=== PATIENT | male | born 1945 | race Caucasian/White ===

== ENCOUNTER 2019-06-06 06:00 | Outpatient (RCR) | payer MEDICARE, OTHER, SELFPAY | END 2019-07-01 23:59 | disposition home or self-care (01) | LOC: SPT 06:00 | PROVIDERS: Family Provider Family Medicine; PCP Family Medicine; Referring Provider Family Medicine; Visit Provider Family Medicine | DX: M54.12 Radiculopathy, cervical region (principal) | CPT/HCPCS: 97110; 97140; 97161; G0283 ==

== ENCOUNTER → 2019-06-29 08:25 | Outpatient (BNVA) | payer MEDICARE, OTHER, SELFPAY | PROVIDERS: Family Provider Family Medicine; PCP Family Medicine; Visit Provider Internal Medicine Cardiovascular Disease | DX: I48.91 Unspecified atrial fibrillation (principal) | CPT/HCPCS: 85610 ==

== ENCOUNTER 2019-07-02 06:00 | Outpatient (RCR) | payer MEDICARE, OTHER, SELFPAY | END 2019-07-30 23:59 | disposition home or self-care (01) | LOC: SPT 06:00 | PROVIDERS: Family Provider Family Medicine; PCP Family Medicine; Referring Provider Family Medicine; Visit Provider Family Medicine | DX: M54.12 Radiculopathy, cervical region (principal) | CPT/HCPCS: 97110; 97140 ==

== ENCOUNTER 2019-07-31 06:00 | Outpatient (RCR) | payer MEDICARE, OTHER, SELFPAY | END 2019-08-05 23:00 | disposition home or self-care (01) | LOC: SPT 06:00 | PROVIDERS: Family Provider Family Medicine; PCP Family Medicine; Referring Provider Family Medicine; Visit Provider Family Medicine | DX: M54.12 Radiculopathy, cervical region (principal) | CPT/HCPCS: 97110; 97140 ==

== ENCOUNTER → 2019-08-03 08:06 | Outpatient (BNVA) | payer MEDICARE, OTHER, SELFPAY | PROVIDERS: Family Provider Family Medicine; PCP Family Medicine; Visit Provider Internal Medicine Cardiovascular Disease | DX: I48.91 Unspecified atrial fibrillation (principal) | CPT/HCPCS: 85610 ==

== ENCOUNTER → 2019-08-16 14:19 | Outpatient (BNVA) | payer MEDICARE, OTHER, SELFPAY | PROVIDERS: Family Provider Family Medicine; PCP Family Medicine; Visit Provider Urology | DX: N40.1 Benign prostatic hyperplasia with lower urinary tract symptoms (principal); C67.9 Malignant neoplasm of bladder, unspecified; R97.20 Elevated prostate specific antigen [PSA] | CPT/HCPCS: 81001 ==

== ENCOUNTER → 2019-09-22 12:00 | Outpatient (BNVA) | payer MEDICARE, OTHER, SELFPAY | PROVIDERS: Family Provider Family Medicine; PCP Family Medicine; Visit Provider Internal Medicine Cardiovascular Disease | DX: I48.91 Unspecified atrial fibrillation (principal) | CPT/HCPCS: 85610 ==

== ENCOUNTER → 2019-10-03 08:30 | Outpatient (BNVA) | payer MEDICARE, OTHER, SELFPAY | PROVIDERS: Family Provider Family Medicine; PCP Family Medicine; Visit Provider Internal Medicine Cardiovascular Disease | DX: I48.91 Unspecified atrial fibrillation (principal) | CPT/HCPCS: 85610 ==

== ENCOUNTER → 2019-10-31 09:09 | Outpatient (BNVA) | payer MEDICARE, OTHER, SELFPAY | PROVIDERS: Family Provider Family Medicine; PCP Family Medicine; Visit Provider Internal Medicine Cardiovascular Disease | DX: I48.91 Unspecified atrial fibrillation (principal) | CPT/HCPCS: 85610 ==

== ENCOUNTER → 2019-12-29 08:43 | Outpatient (BNVA) | payer MEDICARE, OTHER, SELFPAY | PROVIDERS: Family Provider Family Medicine; PCP Family Medicine; Visit Provider Internal Medicine Cardiovascular Disease | DX: I48.91 Unspecified atrial fibrillation (principal) | CPT/HCPCS: 85610 ==

== ENCOUNTER → 2020-01-18 08:47 | Outpatient (BNVA) | payer MEDICARE, OTHER, SELFPAY | PROVIDERS: Family Provider Family Medicine; PCP Family Medicine; Referring Provider Dermatology; Visit Provider Dermatology | DX: L57.0 Actinic keratosis (principal); I87.8 Other specified disorders of veins; L81.7 Pigmented purpuric dermatosis; L82.1 Other seborrheic keratosis; D23.9 Other benign neoplasm of skin, unspecified | CPT/HCPCS: 17000; 17003; 99203 ==

== ENCOUNTER 2020-01-30 14:23 | Outpatient (CLI) | payer MEDICARE, OTHER, SELFPAY ==
--- NOTE | 2020-01-30 14:34 | MR_ITS ---
WS: [id number] MRI RIGHT KNEE NONCONTRAST TECHNIQUE: Axial PD, coronal PD fat sat, coronal PD, sagittal PD, and sagittal PD fat-sat images obta ined. CLINICAL INFORMATION: POSITIVE JUSTINA TEST RIGHT COMPARISON: Radiograph January 16, 2020 FINDINGS: Normal anterior cruciate ligament. Normal posterior cruciate ligament. Distal quadriceps and patella tendons are intact. Hypertrophic patella. Faint intrasubstance signal abnormality medial meniscus pos terior horn suspicious for a tiny meniscal tear. Lateral meniscus is normal. TIny amount of edema inv olving the medial tibial plateau. Femoral condyles are normal. Mild chondromalacia involving the medi al and lateral joint compartments. Diffuse edema involving the superficial and deep aspect of the medial collateral ligament consistent with ligamentous injury. MCL is grossly intact. Lateral collateral ligament is normal. Moderate chondromalacia patella. No subchondral edema. Tiny likely popliteal cyst MR/MR knee RT wo con* [id number] IMPRESSION: 1. Normal anterior and posterior cruciate ligaments. 2. Faint signal abnormality involving the medial meniscus suspicious for tiny horizontal meniscal tear. 3. Diffuse edema along the medial collateral ligament involving the superficia l and deep fibers consistent with ligamentous injury. MCL appears grossly intac t. 4. Moderate chondromalacia patella. No subchondral edema. 5. Small lobulated popliteal cyst measuring 12 x 6 mm. 6. Small amount of degenerative edema in the medial tibial plateau.
== END 2020-01-30 14:24 | disposition home or self-care (01) ==
LOC: RADWPI 14:29
PROVIDERS: Family Provider Family Medicine; PCP Family Medicine; Visit Provider Family Medicine
DX: R29.898 Other symptoms and signs involving the musculoskeletal system (principal); M22.41 Chondromalacia patellae, right knee; R60.0 Localized edema; M71.21 Synovial cyst of popliteal space [Baker], right knee; I48.91 Unspecified atrial fibrillation
CPT/HCPCS: 73721; 85610

== ENCOUNTER → 2020-02-27 09:02 | Outpatient (BNVA) | payer MEDICARE, OTHER, SELFPAY | PROVIDERS: Family Provider Family Medicine; PCP Family Medicine; Visit Provider Internal Medicine Cardiovascular Disease | DX: I48.91 Unspecified atrial fibrillation (principal) | CPT/HCPCS: 85610 ==

== ENCOUNTER 2020-02-28 06:00 | Outpatient (RCR) | payer MEDICARE, OTHER, SELFPAY | END 2020-02-29 23:59 | disposition home or self-care (01) | LOC: SPT 06:00 | PROVIDERS: PCP Family Medicine; Referring Provider Orthopaedic Surgery; Visit Provider Orthopaedic Surgery | DX: M22.2X1 Patellofemoral disorders, right knee (principal) | CPT/HCPCS: 97110; 97162 ==

== ENCOUNTER 2020-03-01 06:00 | Outpatient (RCR) | payer MEDICARE, OTHER, SELFPAY | END 2020-03-16 23:00 | disposition home or self-care (01) | LOC: SPT 06:00 | PROVIDERS: PCP Family Medicine; Referring Provider Orthopaedic Surgery; Visit Provider Orthopaedic Surgery | DX: M22.2X1 Patellofemoral disorders, right knee (principal); M25.561 Pain in right knee | CPT/HCPCS: 97110 ==

== ENCOUNTER → 2020-03-27 10:02 | Outpatient (BNVA) | payer MEDICARE, OTHER, SELFPAY | PROVIDERS: PCP Family Medicine; Visit Provider Internal Medicine Cardiovascular Disease | DX: I48.91 Unspecified atrial fibrillation (principal) | CPT/HCPCS: 85610 ==

== ENCOUNTER 2020-04-18 06:00 | Outpatient (RCR) | payer MEDICARE, OTHER, SELFPAY | END 2020-04-30 23:59 | disposition home or self-care (01) | LOC: SPT 06:00 | PROVIDERS: PCP Family Medicine; Referring Provider Orthopaedic Surgery; Visit Provider Orthopaedic Surgery | DX: M47.816 Spondylosis without myelopathy or radiculopathy, lumbar region (principal); M54.5 Low back pain | CPT/HCPCS: 97161 ==

== ENCOUNTER → 2020-04-24 09:01 | Outpatient (BNVA) | payer MEDICARE, OTHER, SELFPAY | PROVIDERS: PCP Family Medicine; Visit Provider Internal Medicine Cardiovascular Disease | DX: I48.91 Unspecified atrial fibrillation (principal) | CPT/HCPCS: 85610 ==

== ENCOUNTER 2020-05-01 06:00 | Outpatient (RCR) | payer MEDICARE, OTHER, SELFPAY | END 2020-05-31 23:59 | disposition home or self-care (01) | LOC: SPT 06:00 | PROVIDERS: PCP Family Medicine; Referring Provider Orthopaedic Surgery; Visit Provider Orthopaedic Surgery | DX: M47.816 Spondylosis without myelopathy or radiculopathy, lumbar region (principal); M54.5 Low back pain | CPT/HCPCS: 97110 ==

== ENCOUNTER → 2020-05-22 08:48 | Outpatient (BNVA) | payer MEDICARE, OTHER, SELFPAY | PROVIDERS: PCP Family Medicine; Visit Provider Internal Medicine Cardiovascular Disease | DX: I48.91 Unspecified atrial fibrillation (principal) | CPT/HCPCS: 85610 ==

== ENCOUNTER → 2020-06-21 09:57 | Outpatient (BNVA) | payer MEDICARE, OTHER, SELFPAY | PROVIDERS: PCP Family Medicine; Visit Provider Internal Medicine Cardiovascular Disease | DX: I48.91 Unspecified atrial fibrillation (principal) | CPT/HCPCS: 85610 ==

== ENCOUNTER → 2020-07-02 09:31 | Outpatient (BNVA) | payer MEDICARE, OTHER, SELFPAY | PROVIDERS: PCP Family Medicine; Visit Provider Urology | DX: C67.9 Malignant neoplasm of bladder, unspecified (principal); R97.20 Elevated prostate specific antigen [PSA]; N40.1 Benign prostatic hyperplasia with lower urinary tract symptoms | CPT/HCPCS: 81003; 84153 ==

== ENCOUNTER → 2020-07-26 10:14 | Outpatient (BNVA) | payer MEDICARE, OTHER, SELFPAY | PROVIDERS: PCP Family Medicine; Visit Provider Internal Medicine Cardiovascular Disease | DX: I48.91 Unspecified atrial fibrillation (principal) | CPT/HCPCS: 85610 ==

== ENCOUNTER → 2020-08-23 10:50 | Outpatient (BNVA) | payer MEDICARE, OTHER, SELFPAY | PROVIDERS: PCP Family Medicine; Visit Provider Internal Medicine Cardiovascular Disease | DX: I48.91 Unspecified atrial fibrillation (principal) | CPT/HCPCS: 85610 ==

== ENCOUNTER → 2020-09-20 08:50 | Outpatient (BNVA) | payer MEDICARE, OTHER, SELFPAY | PROVIDERS: PCP Family Medicine; Visit Provider Internal Medicine Cardiovascular Disease | DX: I48.91 Unspecified atrial fibrillation (principal) | CPT/HCPCS: 85610 ==

== ENCOUNTER → 2020-10-18 08:45 | Outpatient (BNVA) | payer MEDICARE, OTHER, SELFPAY | PROVIDERS: PCP Family Medicine; Visit Provider Internal Medicine Cardiovascular Disease | DX: I48.91 Unspecified atrial fibrillation (principal) | CPT/HCPCS: 85610 ==

== ENCOUNTER → 2020-11-01 09:00 | Outpatient (BNVA) | payer MEDICARE, OTHER, SELFPAY | PROVIDERS: PCP Family Medicine; Visit Provider Internal Medicine Cardiovascular Disease | DX: I48.91 Unspecified atrial fibrillation (principal) | CPT/HCPCS: 85610 ==

== ENCOUNTER → 2020-11-15 08:56 | Outpatient (BNVA) | payer MEDICARE, OTHER, SELFPAY | PROVIDERS: PCP Family Medicine | DX: I48.91 Unspecified atrial fibrillation (principal); Z79.01 Long term (current) use of anticoagulants | CPT/HCPCS: 85610 ==

== ENCOUNTER → 2020-12-13 09:02 | Outpatient (BNVA) | payer MEDICARE, OTHER, SELFPAY | PROVIDERS: PCP Family Medicine; Visit Provider Internal Medicine Cardiovascular Disease | DX: I48.91 Unspecified atrial fibrillation (principal); Z79.01 Long term (current) use of anticoagulants | CPT/HCPCS: 85610 ==

== ENCOUNTER → 2021-01-10 09:33 | Outpatient (BNVA) | payer MEDICARE, OTHER, SELFPAY | PROVIDERS: PCP Family Medicine; Visit Provider Internal Medicine Cardiovascular Disease | DX: I48.91 Unspecified atrial fibrillation (principal); Z79.01 Long term (current) use of anticoagulants | CPT/HCPCS: 85610 ==

== ENCOUNTER → 2021-02-07 09:04 | Outpatient (BNVA) | payer MEDICARE, OTHER, SELFPAY | PROVIDERS: PCP Family Medicine; Visit Provider Internal Medicine Cardiovascular Disease | DX: I48.91 Unspecified atrial fibrillation (principal); Z79.01 Long term (current) use of anticoagulants | CPT/HCPCS: 85610 ==

== ENCOUNTER → 2021-02-21 08:48 | Outpatient (BNVA) | payer MEDICARE, OTHER, SELFPAY | PROVIDERS: PCP Family Medicine; Visit Provider Internal Medicine Cardiovascular Disease | DX: I48.91 Unspecified atrial fibrillation (principal); Z79.01 Long term (current) use of anticoagulants | CPT/HCPCS: 85610 ==

== ENCOUNTER → 2021-03-21 09:08 | Outpatient (BNVA) | payer MEDICARE, OTHER, SELFPAY | PROVIDERS: PCP Family Medicine; Visit Provider Internal Medicine Cardiovascular Disease | DX: I48.91 Unspecified atrial fibrillation (principal); Z79.01 Long term (current) use of anticoagulants | CPT/HCPCS: 85610 ==

== ENCOUNTER → 2021-04-18 09:21 | Outpatient (BNVA) | payer MEDICARE, OTHER, SELFPAY | PROVIDERS: PCP Family Medicine; Visit Provider Internal Medicine Cardiovascular Disease | DX: I48.91 Unspecified atrial fibrillation (principal); Z79.01 Long term (current) use of anticoagulants | CPT/HCPCS: 85610 ==

== ENCOUNTER → 2021-05-16 09:28 | Outpatient (BNVA) | payer MEDICARE, OTHER, SELFPAY | PROVIDERS: PCP Family Medicine; Visit Provider Internal Medicine Cardiovascular Disease | DX: I48.91 Unspecified atrial fibrillation (principal); Z79.01 Long term (current) use of anticoagulants | CPT/HCPCS: 85610 ==

== ENCOUNTER → 2021-05-22 09:02 | Outpatient (BNVA) | payer MEDICARE, OTHER, SELFPAY | PROVIDERS: PCP Family Medicine; Visit Provider Internal Medicine Cardiovascular Disease | DX: I48.91 Unspecified atrial fibrillation (principal); Z79.01 Long term (current) use of anticoagulants | CPT/HCPCS: 85610 ==

== ENCOUNTER → 2021-05-29 09:00 | Outpatient (BNVA) | payer MEDICARE, OTHER, SELFPAY | PROVIDERS: PCP Family Medicine; Visit Provider Internal Medicine Cardiovascular Disease | DX: I48.91 Unspecified atrial fibrillation (principal) | CPT/HCPCS: 85610 ==

== ENCOUNTER 2021-06-11 06:54 | Outpatient (CLI) | payer MEDICARE, OTHER, SELFPAY ==
[2021-06-11 07:01] VITALS: BMI 27.3
--- NOTE | 2021-06-11 07:39 | ECG_ITS ---
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 Interpretive Statements NAME OF STUDY: TREADMILL STRESS TEST INDICATION: Angina Baseline blood pressure of 147/103 mm Hg, heart rate of 94 beats per minute and oxygen saturation 100%. EKG showed atrial fibrillation, normal axis with nonspecific ST depression and T wave changes. The patient exercised for 6 minutes 27 seconds on a standard Edinson protocol. Patient attained a maximum heart rate of 182 beats per minute(127% of the maximum predicted heart rate) with a blood pressure at the peak exercise of 160/96 mm Hg and oxygen saturation 93%. The EKG at the peak exercise revealed atrial fibrillation with rapid ventricle response with nonspecific ST depression in lateral leads. Patient did not have any chest pain or any significant arrhythmis with the exercise. Patient developed intraprocedural shortness of breath that resolved by discharge. The study was terminated due to protocol completion. During the recovery phase, there were no new changes. Blood pressure at the end of the recovery phase was 132/98 mm Hg with a heart rate of 105 beats per minute and oxygen saturation 98%. CONCLUSION: 1. Normal EKG response to treadmill exercise. This is of limited sensitivity given baseline ST-T wave changes. 2. No exercise-induced chest pain or cardiac arrhythmia. Patient remained in atrial fibrillation throughout the study. 3. Excellent exercise tolerance, attained a maximum of 10.2 METs. Maximum VO2 of 35.7 mL/kg/min. 4. Baseline hypertension with normal response to exercise. RESULTS TO PARVEZ FAUSTIN Electronically Signed On 06-18-2021 12:12:48 MANAGER URGENT CARE by Natalia Thomas M.D. [email or web address]
--- NOTE | 2021-06-11 08:25 | SUR.PREOP ---
Stress test orders Patient arrived today for scheduled nuclear stress test. No order noted in the sytem. Reached out to Walker Kessler for the order. Recieved after an hour wait. The test is scheduled incorrectly for what the order states. I called Walker Kessler back. The test per Betina, which is Dr Rich nurse is supposed to be a plain treadmill stress. The order matches this request, but is scheduled as a nuclear stress. I notified our scheduling department to clarify whether or not the test needs a pre authorization since it was scheduled incorrectly or not and had to leave a message. I am currently waiting on a reply. I updated the patient on this and he is agreeable at this point to wait for the reply.
--- NOTE | 2021-06-11 08:34 | SUR.PREOP ---
Erica Tinsley Received a phone call from [facility] nurse Betina and she states that [place] [facility] [place] is for a plain treadmill stress test and not a Mibi. The exams were just Scheduled incorrectly, but from an insurance perspective we are cleared to to a Plain Treadmill study. Patient updated. Proceeding and non nuclear study.
[2021-06-11 09:37] VITALS: BP 164/99; PULSE 105
== END 2021-06-11 06:55 | disposition home or self-care (01) ==
LOC: CDL 06:57
PROVIDERS: PCP Family Medicine; Visit Provider Family Medicine
DX: R68.89 Other general symptoms and signs (principal); R07.9 Chest pain, unspecified
CPT/HCPCS: 93017

== ENCOUNTER → 2021-06-26 09:07 | Outpatient (BNVA) | payer MEDICARE, OTHER, SELFPAY | PROVIDERS: PCP Family Medicine; Visit Provider Internal Medicine Cardiovascular Disease | DX: I48.91 Unspecified atrial fibrillation (principal); Z79.01 Long term (current) use of anticoagulants | CPT/HCPCS: 85610 ==

== ENCOUNTER → 2021-07-03 09:04 | Outpatient (BNVA) | payer MEDICARE, OTHER, SELFPAY | PROVIDERS: PCP Family Medicine; Visit Provider Internal Medicine Cardiovascular Disease | DX: I48.91 Unspecified atrial fibrillation (principal) | CPT/HCPCS: 85610 ==

== ENCOUNTER → 2021-07-31 09:00 | Outpatient (BNVA) | payer MEDICARE, OTHER, SELFPAY | PROVIDERS: PCP Family Medicine; Visit Provider Internal Medicine Cardiovascular Disease | DX: I48.91 Unspecified atrial fibrillation (principal); Z79.01 Long term (current) use of anticoagulants | CPT/HCPCS: 85610 ==

== ENCOUNTER 2021-08-26 12:32 | Outpatient (CLI) | payer MEDICARE, OTHER, SELFPAY ==
[2021-08-26 13:32] LABS: Prostate Specific Antigen 0.941 ng/mL (0-4)
== END 2021-08-26 12:33 | disposition home or self-care (01) ==
LOC: LAB 12:36
PROVIDERS: PCP Family Medicine; Visit Provider Urology
DX: R97.20 Elevated prostate specific antigen [PSA] (principal)
CPT/HCPCS: 81003; 84153

== ENCOUNTER → 2021-09-04 08:56 | Outpatient (BNVA) | payer MEDICARE, OTHER, SELFPAY | PROVIDERS: PCP Family Medicine; Visit Provider Internal Medicine Cardiovascular Disease | DX: I48.91 Unspecified atrial fibrillation (principal); Z79.01 Long term (current) use of anticoagulants | CPT/HCPCS: 85610 ==

== ENCOUNTER → 2021-09-10 14:43 | Outpatient (BNVA) | payer MEDICARE, OTHER, SELFPAY | PROVIDERS: PCP Family Medicine; Visit Provider Internal Medicine Cardiovascular Disease | DX: I48.20 Chronic atrial fibrillation, unspecified (principal); I10 Essential (primary) hypertension; I83.811 Varicose veins of right lower extremity with pain; R53.83 Other fatigue; Z86.73 Personal history of transient ischemic attack (TIA), and cerebral infarction without residual deficits; Z79.01 Long term (current) use of anticoagulants | CPT/HCPCS: 99213; 99214 ==

== ENCOUNTER → 2021-10-02 08:53 | Outpatient (BNVA) | payer MEDICARE, OTHER, SELFPAY | PROVIDERS: PCP Family Medicine; Visit Provider Internal Medicine Cardiovascular Disease | DX: Z79.01 Long term (current) use of anticoagulants (principal) | CPT/HCPCS: 85610 ==

== ENCOUNTER → 2021-10-31 08:52 | Outpatient (BNVA) | payer MEDICARE, OTHER, SELFPAY | PROVIDERS: PCP Family Medicine; Visit Provider Internal Medicine Cardiovascular Disease | DX: Z79.01 Long term (current) use of anticoagulants (principal) | CPT/HCPCS: 85610 ==

== ENCOUNTER → 2021-11-07 08:54 | Outpatient (BNVA) | payer MEDICARE, OTHER, SELFPAY | PROVIDERS: PCP Family Medicine; Visit Provider Internal Medicine Cardiovascular Disease | DX: Z79.01 Long term (current) use of anticoagulants (principal) | CPT/HCPCS: 85610 ==

== ENCOUNTER 2021-11-08 06:00 | Outpatient (RCR) | payer MEDICARE, OTHER, SELFPAY | END 2021-11-27 12:47 | disposition home or self-care (01) | LOC: SPT 06:00 | PROVIDERS: PCP Family Medicine; Referring Provider Family Medicine; Visit Provider Family Medicine | DX: M54.50 Low back pain, unspecified (principal); M25.512 Pain in left shoulder | CPT/HCPCS: 97110; 97140; 97161; G0283 ==

== ENCOUNTER → 2021-12-05 08:53 | Outpatient (BNVA) | payer MEDICARE, OTHER, SELFPAY | PROVIDERS: PCP Family Medicine; Visit Provider Internal Medicine Cardiovascular Disease | DX: Z79.01 Long term (current) use of anticoagulants (principal) | CPT/HCPCS: 85610 ==

== ENCOUNTER → 2022-01-02 09:50 | Outpatient (BNVA) | payer MEDICARE, OTHER, SELFPAY | PROVIDERS: PCP Family Medicine; Visit Provider Internal Medicine Cardiovascular Disease | DX: I48.91 Unspecified atrial fibrillation (principal); Z51.81 Encounter for therapeutic drug level monitoring; Z79.01 Long term (current) use of anticoagulants | CPT/HCPCS: 85610 ==

== ENCOUNTER → 2022-01-30 10:03 | Outpatient (BNVA) | payer MEDICARE, OTHER, SELFPAY | PROVIDERS: PCP Family Medicine; Visit Provider Internal Medicine Cardiovascular Disease | DX: I48.91 Unspecified atrial fibrillation (principal) | CPT/HCPCS: 85610 ==

== ENCOUNTER → 2022-02-27 15:16 | Outpatient (BNVA) | payer MEDICARE, OTHER, SELFPAY | PROVIDERS: PCP Family Medicine; Visit Provider Internal Medicine Cardiovascular Disease | DX: I48.91 Unspecified atrial fibrillation (principal) | CPT/HCPCS: 85610 ==

== ENCOUNTER → 2022-03-06 13:37 | Outpatient (BNVA) | payer MEDICARE, OTHER, SELFPAY | PROVIDERS: PCP Family Medicine; Visit Provider Internal Medicine Cardiovascular Disease | DX: I48.20 Chronic atrial fibrillation, unspecified (principal); Z79.01 Long term (current) use of anticoagulants; I10 Essential (primary) hypertension; R00.1 Bradycardia, unspecified; Z86.73 Personal history of transient ischemic attack (TIA), and cerebral infarction without residual deficits; Z87.891 Personal history of nicotine dependence | CPT/HCPCS: 99214 ==

== ENCOUNTER → 2022-03-27 09:18 | Outpatient (BNVA) | payer MEDICARE, OTHER, SELFPAY | PROVIDERS: PCP Family Medicine; Visit Provider Internal Medicine Cardiovascular Disease | DX: I48.91 Unspecified atrial fibrillation (principal) | CPT/HCPCS: 85610 ==

== ENCOUNTER → 2022-04-07 13:33 | Outpatient (BNVA) | payer MEDICARE, OTHER, SELFPAY | PROVIDERS: PCP Family Medicine; Visit Provider Internal Medicine Cardiovascular Disease | DX: I48.91 Unspecified atrial fibrillation (principal); Z79.01 Long term (current) use of anticoagulants | CPT/HCPCS: 85610 ==

== ENCOUNTER → 2022-05-05 13:27 | Outpatient (BNVA) | payer MEDICARE, OTHER, SELFPAY | PROVIDERS: PCP Family Medicine; Visit Provider Internal Medicine Cardiovascular Disease | DX: I48.91 Unspecified atrial fibrillation (principal); Z79.01 Long term (current) use of anticoagulants | CPT/HCPCS: 85610 ==

== ENCOUNTER → 2022-06-09 15:12 | Outpatient (BNVA) | payer MEDICARE, OTHER, SELFPAY | PROVIDERS: PCP Family Medicine; Visit Provider Internal Medicine Cardiovascular Disease | DX: I48.91 Unspecified atrial fibrillation (principal) | CPT/HCPCS: 85610 ==

== ENCOUNTER → 2022-07-07 13:13 | Outpatient (BNVA) | payer OTHER, MEDICARE, SELFPAY | PROVIDERS: PCP Family Medicine; Visit Provider Internal Medicine Cardiovascular Disease | DX: I48.91 Unspecified atrial fibrillation (principal) | CPT/HCPCS: 85610 ==

== ENCOUNTER → 2022-08-04 13:00 | Outpatient (BNVA) | payer MEDICARE, SELFPAY | PROVIDERS: PCP Family Medicine; Visit Provider Internal Medicine Cardiovascular Disease | DX: I48.91 Unspecified atrial fibrillation (principal) | CPT/HCPCS: 85610 ==

== ENCOUNTER 2022-08-07 13:13 | Outpatient (CLI) | payer MEDICARE, SELFPAY ==
--- NOTE | 2022-08-07 13:31 | US_ITS ---
WS: [id number] Complete ABDOMINAL ULTRASOUND HISTORY: ABNORMAL LIVER FUNCTION COMPARISON: None available. Liver: 14.3 cm in length. Liver is normal size and echogenicity with no mass or intrahepatic dilatati on. Portal Vein: Normal hepatopetal flow with monophasic waveform. Gallbladder: Normally distended with no gallstones, wall thickening or pericholecystic fluid. Pancreas: Poorly visualized. The body is normal. Head and tail are poorly visualized. CBD: 0.3 cm. Right kidney: 11.0 cm x 4.7 cm x 5.2 cm. No mass, cortical thickening or hydronephrosis. Left kidney: 11.1 cm x 6.2 cm x 6.0 cm. No mass, cortical thickening or hydronephrosis. Spleen: Normal size and echogenicity. Abdominal aorta and IVC are within normal limits. No ascites. US/US abdomen complete* [id number] IMPRESSION: 1. Normal gallbladder. 2. No bile duct dilatation. 3. Limited visualization of the pancreas.
--- NOTE | 2022-08-07 13:31 | US_ITS ---
WS: [id number] URINARY BLADDER ULTRASOUND HISTORY: URINARY OUTFLOW OBSTRUCTION COMPARISON: None available. Urinary bladder is well distended. No intraluminal filling defect. No free fluid adjacent to the urin alin bladder. Bladder Wall Thickness: 0.2 cm. Prevoid volume: 82 cc. Postvoid volume: 7.5 cc. Minimal residual. Prostate gland is enlarged. US/US bladder [id number] IMPRESSION: 1. Minimal post void urinary bladder residual. 2. Prostate enlargement.
== END 2022-08-07 13:14 | disposition home or self-care (01) ==
PROVIDERS: PCP Family Medicine; Visit Provider Family Medicine
DX: R94.5 Abnormal results of liver function studies (principal); N13.9 Obstructive and reflux uropathy, unspecified; N40.0 Benign prostatic hyperplasia without lower urinary tract symptoms
CPT/HCPCS: 76700; 76857

== ENCOUNTER → 2022-09-01 13:54 | Outpatient (BNVA) | payer MEDICARE, SELFPAY | PROVIDERS: PCP Family Medicine; Visit Provider Internal Medicine Cardiovascular Disease | DX: I48.91 Unspecified atrial fibrillation (principal) | CPT/HCPCS: 85610 ==

== ENCOUNTER → 2022-09-04 14:58 | Outpatient (BNVA) | payer MEDICARE, SELFPAY | PROVIDERS: PCP Family Medicine; Visit Provider Urology | DX: C67.9 Malignant neoplasm of bladder, unspecified (principal); N13.8 Other obstructive and reflux uropathy; N40.1 Benign prostatic hyperplasia with lower urinary tract symptoms | CPT/HCPCS: 51741; 51798; 81003; 99213 ==

== ENCOUNTER 2022-09-11 14:36 | Emergency (ER) | payer MEDICARE, SELFPAY ==
[2022-09-11 14:43] VITALS: BP 134/78; PULSE 74; RESP 16; TEMP 36.4; O2SAT 96
--- NOTE | 2022-09-11 14:47 | ECG_ITS ---
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 Measurements Intervals [place] Rate: 65 P: 0 WA: 0 QRS: -18 QRSD: 104 T: -8 QT: 407 QTc: 426 Interpretive Statements ATRIAL FIBRILLATION MODERATE VOLTAGE CRITERIA FOR LVH, CONSIDER NORMAL VARIANT [MEETS CRITERIA IN ONE OF: R(aVL), S(V1), R(V5), R(V5/V6)+S(V1)] PROBABLE LATERAL MYOCARDIAL INFARCTION , PROBABLY OLD [35 ms Q WAVE IN I/aVL/V5/V6] Compared to ECG 04/04/2018 14:03:59 Myocardial infarct finding now present Electronically Signed On 09-11-2022 21:08:36 CDT by Yvon Haider M.D. [id number]
--- NOTE | 2022-09-11 14:58 | PC.NURSE ---
Pt triaged, states he does not want to stay to be evaluated, states he is feeling better now. Talked with pt about risks of not being evaluated, pt verbalized understanding and states he will come back if symptoms return. Pt got up and left triage room ambulatory, walked out of hospital.
== END 2022-09-11 15:01 | disposition left against medical advice (07) ==
LOC: ER 14:37
PROVIDERS: Emergency Provider Family Medicine; PCP Family Medicine
DX: R07.9 Chest pain, unspecified (principal); F44.89 Other dissociative and conversion disorders; I48.20 Chronic atrial fibrillation, unspecified; Z86.73 Personal history of transient ischemic attack (TIA), and cerebral infarction without residual deficits; I10 Essential (primary) hypertension; Z87.891 Personal history of nicotine dependence
CPT/HCPCS: 93005; 99214

== ENCOUNTER → 2022-09-29 12:56 | Outpatient (BNVA) | payer MEDICARE, SELFPAY | PROVIDERS: PCP Family Medicine; Visit Provider Internal Medicine Cardiovascular Disease | DX: I48.91 Unspecified atrial fibrillation (principal) | CPT/HCPCS: 85610 ==

== ENCOUNTER → 2022-10-28 13:43 | Outpatient (BNVA) | payer MEDICARE, SELFPAY | PROVIDERS: PCP Family Medicine; Visit Provider Internal Medicine Cardiovascular Disease | DX: I48.91 Unspecified atrial fibrillation (principal) | CPT/HCPCS: 85610 ==

== ENCOUNTER → 2022-11-03 13:04 | Outpatient (BNVA) | payer MEDICARE, SELFPAY | PROVIDERS: PCP Family Medicine; Visit Provider Internal Medicine Cardiovascular Disease | DX: I48.91 Unspecified atrial fibrillation (principal) | CPT/HCPCS: 85610 ==

== ENCOUNTER → 2022-11-17 13:09 | Outpatient (BNVA) | payer MEDICARE, SELFPAY | PROVIDERS: PCP Family Medicine; Visit Provider Internal Medicine Cardiovascular Disease | DX: I48.91 Unspecified atrial fibrillation (principal) | CPT/HCPCS: 85610 ==

== ENCOUNTER → 2022-12-08 13:13 | Outpatient (BNVA) | payer MEDICARE, SELFPAY | PROVIDERS: PCP Family Medicine; Visit Provider Internal Medicine Cardiovascular Disease | DX: I48.91 Unspecified atrial fibrillation (principal) | CPT/HCPCS: 85610 ==

== ENCOUNTER → 2023-01-05 14:33 | Outpatient (BNVA) | payer MEDICARE, SELFPAY | PROVIDERS: PCP Family Medicine; Visit Provider Internal Medicine Cardiovascular Disease | DX: I48.91 Unspecified atrial fibrillation (principal) | CPT/HCPCS: 85610 ==

== ENCOUNTER → 2023-02-09 13:12 | Outpatient (BNVA) | payer MEDICARE, SELFPAY | PROVIDERS: PCP Family Medicine; Visit Provider Internal Medicine Cardiovascular Disease | DX: I48.91 Unspecified atrial fibrillation (principal) | CPT/HCPCS: 85610 ==

== ENCOUNTER → 2023-02-16 14:05 | Outpatient (BNVA) | payer MEDICARE, SELFPAY | PROVIDERS: PCP Family Medicine; Visit Provider Internal Medicine Cardiovascular Disease | DX: I48.91 Unspecified atrial fibrillation (principal) | CPT/HCPCS: 85610 ==

== ENCOUNTER → 2023-03-16 13:28 | Outpatient (BNVA) | payer MEDICARE, SELFPAY | PROVIDERS: PCP Family Medicine; Visit Provider Internal Medicine Cardiovascular Disease | DX: I48.91 Unspecified atrial fibrillation (principal) | CPT/HCPCS: 85610 ==

== ENCOUNTER → 2023-03-23 14:34 | Outpatient (BNVA) | payer MEDICARE, SELFPAY | PROVIDERS: PCP Family Medicine; Visit Provider Internal Medicine Cardiovascular Disease | DX: I48.91 Unspecified atrial fibrillation (principal) | CPT/HCPCS: 85610 ==

== ENCOUNTER → 2023-03-30 13:21 | Outpatient (BNVA) | payer MEDICARE, SELFPAY | PROVIDERS: PCP Family Medicine; Visit Provider Internal Medicine Cardiovascular Disease | DX: I48.91 Unspecified atrial fibrillation (principal) | CPT/HCPCS: 85610 ==

== ENCOUNTER → 2023-03-31 14:53 | Outpatient (BNVA) | payer MEDICARE, SELFPAY | PROVIDERS: PCP Family Medicine; Visit Provider Nurse Practitioner Family | DX: S00.80XA Unspecified superficial injury of other part of head, initial encounter (principal); X58.XXXA Exposure to other specified factors, initial encounter; L57.0 Actinic keratosis; D18.01 Hemangioma of skin and subcutaneous tissue; L73.8 Other specified follicular disorders | CPT/HCPCS: 17000; 99213 ==

== ENCOUNTER → 2023-04-09 13:38 | Outpatient (BNVA) | payer MEDICARE, SELFPAY | PROVIDERS: PCP Family Medicine; Visit Provider Internal Medicine Cardiovascular Disease | DX: I48.91 Unspecified atrial fibrillation (principal) | CPT/HCPCS: 85610 ==

== ENCOUNTER → 2023-06-02 10:01 | Outpatient (BNVA) | payer MEDICARE, SELFPAY | PROVIDERS: PCP Family Medicine; Visit Provider Internal Medicine Cardiovascular Disease | DX: I48.91 Unspecified atrial fibrillation (principal) | CPT/HCPCS: 85610 ==

== ENCOUNTER → 2023-06-30 09:10 | Outpatient (BNVA) | payer MEDICARE, SELFPAY | PROVIDERS: PCP Family Medicine; Visit Provider Internal Medicine Cardiovascular Disease | DX: I48.91 Unspecified atrial fibrillation (principal) | CPT/HCPCS: 85610 ==

== ENCOUNTER → 2023-08-31 16:04 | Outpatient (BNVA) | payer MEDICARE, SELFPAY | PROVIDERS: PCP Family Medicine; Visit Provider Internal Medicine Cardiovascular Disease | DX: I48.91 Unspecified atrial fibrillation (principal) | CPT/HCPCS: 85610 ==

== ENCOUNTER → 2023-09-08 14:16 | Outpatient (BNVA) | payer MEDICARE, SELFPAY | PROVIDERS: PCP Family Medicine; Visit Provider Internal Medicine Cardiovascular Disease | DX: I48.91 Unspecified atrial fibrillation (principal) | CPT/HCPCS: 85610 ==

== ENCOUNTER → 2023-10-05 16:49 | Outpatient (BNVA) | payer MEDICARE, SELFPAY | PROVIDERS: PCP Family Medicine; Visit Provider Internal Medicine Cardiovascular Disease | DX: I48.91 Unspecified atrial fibrillation (principal) | CPT/HCPCS: 85610 ==

== ENCOUNTER → 2023-10-29 14:58 | Outpatient (BNVA) | payer MEDICARE, SELFPAY | PROVIDERS: PCP Family Medicine; Visit Provider Internal Medicine Cardiovascular Disease | DX: I48.91 Unspecified atrial fibrillation (principal) | CPT/HCPCS: 85610 ==

== ENCOUNTER → 2023-11-11 14:39 | Outpatient (BNVA) | payer MEDICARE, SELFPAY | PROVIDERS: PCP Family Medicine; Visit Provider Internal Medicine Cardiovascular Disease | DX: I48.91 Unspecified atrial fibrillation (principal) | CPT/HCPCS: 85610 ==

== ENCOUNTER → 2023-11-17 14:02 | Outpatient (BNVA) | payer MEDICARE, SELFPAY | PROVIDERS: PCP Family Medicine; Visit Provider Internal Medicine Cardiovascular Disease | DX: I10 Essential (primary) hypertension (principal); I48.20 Chronic atrial fibrillation, unspecified; R00.1 Bradycardia, unspecified; I83.811 Varicose veins of right lower extremity with pain; Z87.891 Personal history of nicotine dependence; Z79.01 Long term (current) use of anticoagulants | CPT/HCPCS: 99214 ==

== ENCOUNTER → 2023-11-18 14:14 | Outpatient (BNVA) | payer MEDICARE, SELFPAY | PROVIDERS: PCP Family Medicine; Visit Provider Internal Medicine Cardiovascular Disease | DX: I48.91 Unspecified atrial fibrillation (principal) | CPT/HCPCS: 85610 ==

== ENCOUNTER → 2023-12-16 14:00 | Outpatient (BNVA) | payer MEDICARE, SELFPAY | PROVIDERS: PCP Family Medicine; Visit Provider Internal Medicine Cardiovascular Disease | DX: I48.91 Unspecified atrial fibrillation (principal) | CPT/HCPCS: 85610 ==

== ENCOUNTER → 2024-01-13 14:08 | Outpatient (BNVA) | payer MEDICARE, SELFPAY | PROVIDERS: PCP Family Medicine; Visit Provider Internal Medicine Cardiovascular Disease | DX: I48.91 Unspecified atrial fibrillation (principal) | CPT/HCPCS: 85610 ==

== ENCOUNTER → 2024-01-20 14:14 | Outpatient (BNVA) | payer MEDICARE, SELFPAY | PROVIDERS: PCP Family Medicine; Visit Provider Internal Medicine Cardiovascular Disease | DX: I48.91 Unspecified atrial fibrillation (principal) | CPT/HCPCS: 85610 ==

== ENCOUNTER → 2024-04-05 11:07 | Outpatient (BNVA) | payer MEDICARE, SELFPAY | PROVIDERS: PCP Family Medicine; Visit Provider Nurse Practitioner Family | DX: D48.5 Neoplasm of uncertain behavior of skin (principal); L57.0 Actinic keratosis; B02.29 Other postherpetic nervous system involvement; D22.39 Melanocytic nevi of other parts of face | CPT/HCPCS: 17280; 99214 ==

== ENCOUNTER → 2024-04-07 12:55 | Outpatient (BNVA) | payer MEDICARE, SELFPAY | PROVIDERS: PCP Family Medicine; Visit Provider Internal Medicine Cardiovascular Disease | DX: I48.91 Unspecified atrial fibrillation (principal) | CPT/HCPCS: 85610 ==

== ENCOUNTER → 2024-04-14 13:11 | Outpatient (BNVA) | payer MEDICARE, SELFPAY | PROVIDERS: PCP Family Medicine; Visit Provider Internal Medicine Cardiovascular Disease | DX: I48.91 Unspecified atrial fibrillation (principal) | CPT/HCPCS: 85610 ==

== ENCOUNTER → 2024-06-07 13:54 | Outpatient (BNVA) | payer MEDICARE, SELFPAY | PROVIDERS: PCP Family Medicine; Visit Provider Internal Medicine Cardiovascular Disease | DX: I48.20 Chronic atrial fibrillation, unspecified (principal); I10 Essential (primary) hypertension; R00.1 Bradycardia, unspecified; I83.811 Varicose veins of right lower extremity with pain; Z87.891 Personal history of nicotine dependence; Z79.01 Long term (current) use of anticoagulants | CPT/HCPCS: 99214 ==

== ENCOUNTER → 2024-07-04 14:04 | Outpatient (BNVA) | payer MEDICARE, SELFPAY | PROVIDERS: PCP Family Medicine; Visit Provider Internal Medicine Cardiovascular Disease | DX: I48.91 Unspecified atrial fibrillation (principal) | CPT/HCPCS: 85610 ==

== ENCOUNTER → 2024-08-04 10:36 | Outpatient (BNVA) | payer MEDICARE, SELFPAY | PROVIDERS: PCP Family Medicine; Visit Provider Internal Medicine Cardiovascular Disease | DX: I48.91 Unspecified atrial fibrillation (principal) | CPT/HCPCS: 85610 ==

== ENCOUNTER → 2024-09-29 11:47 | Outpatient (BNVA) | payer MEDICARE, SELFPAY | PROVIDERS: PCP Family Medicine | DX: I48.91 Unspecified atrial fibrillation (principal) | CPT/HCPCS: 85610 ==

== ENCOUNTER → 2024-11-08 11:11 | Outpatient (BNVA) | payer MEDICARE, SELFPAY | PROVIDERS: PCP Family Medicine; Visit Provider Internal Medicine Cardiovascular Disease | DX: I48.91 Unspecified atrial fibrillation (principal) | CPT/HCPCS: 85610 ==

== ENCOUNTER → 2025-01-17 10:16 | Outpatient (BNVA) | payer MEDICARE, SELFPAY | PROVIDERS: PCP Family Medicine; Visit Provider Internal Medicine Cardiovascular Disease | DX: I48.91 Unspecified atrial fibrillation (principal) | CPT/HCPCS: 85610 ==

== ENCOUNTER → 2025-02-16 10:58 | Outpatient (BNVA) | payer MEDICARE, SELFPAY | PROVIDERS: PCP Family Medicine; Visit Provider Internal Medicine Cardiovascular Disease | DX: I48.91 Unspecified atrial fibrillation (principal) | CPT/HCPCS: 85610 ==

== ENCOUNTER 2025-02-22 06:46 | Emergency (ER) | payer MEDICARE, SELFPAY ==
--- OUTSIDE RECORDS SUMMARY | 2025-02-22 06:57 | XMS_ITS | Encounter Summary ---
Author Organization [facility] Address [address] [place] [address] Care Team Providers Care Checkerer Hand Name Role Phone Unavailable Primary Care Provider Unavailabl e Encounter Details Date Type Department Care Team (Latest Contact Info) Description 01/22/2004 Outpatient Historical [facility] Cardiac Office Coordinator Receptionist [address] [place] [phone] Hosea Flores MD NO ADDRESS ON FILE CORON ATHEROSCL [place] CORON VESSEL (Primary Dx) Social History Tobacco Use Types Packs/Day Years Used Date Smoking Tobacco: Never Assessed Sex and Gender Information Value Date Recorded Sex Assigned at Not on file 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
--- OUTSIDE RECORDS SUMMARY | 2025-02-22 06:57 | XMS_ITS | Encounter Summary ---
Author Organization [facility] Address 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
--- OUTSIDE RECORDS SUMMARY | 2025-02-22 06:57 | XMS_ITS | Clinical Summary ---
Author Organization [facility] Address [address] [place]hn: [place] [address] Care Team Providers Care Shot Core Drill Operator Helper Name Role Phone Unavailable Primary Care Provider Unavailabl e Allergies No known active allergies Medications tamsulosin (FLOMAX) 0.4 mg capsule Take 0.4 mg by mouth daily. 04/04/2018 Active finasteride (PROSCAR) 5 mg tablet Take 5 mg by mouth daily. 04/04/2018 Active metoprolol tartrate (LOPRESSOR) 25 mg tablet Take 25 mg by mouth 2 times daily. 04/04/2018 Active aspirin (ADELFO CHEWABLE) 81 mg Tablet, Chewable Take 81 mg by mouth daily. 04/04/2018 Active warfarin (COUMADIN) 2 mg tablet Take 2 mg by mouth daily. 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 Benign hypertension 04/04/2018 Encounters Date Type Department Care Team Description 02/14/2025 External Device Data [facility] ABSTRACTION Provider, Abstract 01/24/2025 External Device Data [facility] ABSTRACTION Provider, Abstract 01/16/2025 Telephone [facility] Urology [address] [place] [phone] Provider, Abstract urology referral appointment 01/12/2025 Abstract [facility] Urolog[address] [place] [address] Provider, Abstract from Last 3 Months Family History Medical History Relation Name Comments Heart Disease Father Hypertension Father Heart Disease Mother Hypertension Mother Relation Name Status Comments Father Mother Social History Tobacco Use Types Packs/Day Years Used Date Smoking Tobacco: Never Smokeless Tobacco: Never Alcohol Use Standard Drinks/Week Comments No 0 (1 standard drink = 0.6 oz pur e alcohol) Sex and Gender Information Value Date Recorded Sex Assigned at Not on file 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 Sex Male 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 Gender Identity Not on file Sexual Orientation Not on file Last Filed Vital Signs Vital Sign Reading Time Taken Comments Blood Pressure 134/62 04/08/2018 3:45 PM HARBOR TUG CAPTAIN Pulse 84 04/08/2018 3:45 PM HARBOR TUG CAPTAIN Temperature 36.3 C (97.3 F) 04/08/2018 3:45 PM HARBOR TUG CAPTAIN Respiratory Rate 20 04/08/2018 3:45 PM HARBOR TUG CAPTAIN Oxygen Saturation - - Inhaled Oxygen Concentration - - Weight 90.7 kg (200 lb) 04/04/2018 9:30 PM HARBOR TUG CAPTAIN Height 175.3 cm (5' 9 ) 04/08/2018 3:20 AM HARBOR TUG CAPTAIN Body Mass Index 29.53 04/04/2018 9:30 PM HARBOR TUG CAPTAIN Plan of Treatment Upcoming Encounters Date Type Department Care Team (Late st Contact Info) Description 03/22/2025 10:45 AM CDT Office Visit [facility] Urology [address] [place] [phone] Darrel Mendoza MD [address] [place] [phone] Health Maintenance Due Date Last Done Comments DTAP/TDAP/TD VACCINES (1 - Tdap) 1962 ZOSTER VACCINE (1 of 2) 1993 PNEUMOCOCCAL VACCINE 50+ YEA RS (2 of 2 - PCV) 06/01/2003 06/01/2002 RSV VACCINE (60+ or ) (1 - 1-dose 75+ series) 2018 INFLUENZA VACCINE (#1) 2024 3, 04/09/2022, 11/02/2015, Additional history exists COVID-19 Vaccine (2024-2 6 season) 2025 04/09/2022, 04/12/2021, 03/01/2021, Additional history exists Insurance [facility]
--- OUTSIDE RECORDS SUMMARY | 2025-02-22 06:57 | XMS_ITS | Clinical Summary ---
Author Organization [facility] Address [address] [place] [address] Phone Care Team Providers Care Senior Sas Developer Name Role Phone Unavailable Primary Care Provider Unavailabl e Allergies No known active allergies Medications aspirin (ADELFO CHEWABLE) 81 mg Tablet, Chewable Take 81 mg by mouth daily. Active finasteride (PROSCAR) 5 mg tablet Take 5 mg by mouth daily. Active tamsulosin (FLOMAX) 0.4 mg capsule Take 0.4 mg by mouth daily. Active metoprolol tartrate (LOPRESSOR) 25 mg tablet Take 25 mg by mouth 2 times daily. Active warfarin (COUMADIN) 2 mg tablet Take 2 mg by mouth daily. 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 file Not on file Not on file Last Filed Vital Signs Vital Sign Reading Time Taken Comments Blood Pressure 134/62 04/08/2018 3:45 PM JIG AND FIXTURE REPAIRER Pulse 84 04/08/2018 3:45 PM JIG AND FIXTURE REPAIRER Temperature 36.3 C (97.3 F) 04/08/2018 3:45 PM JIG AND FIXTURE REPAIRER Respiratory Rate 20 04/08/2018 3:45 PM JIG AND FIXTURE REPAIRER Oxygen Saturation 94% 04/08/2018 3:45 PM JIG AND FIXTURE REPAIRER Inhaled Oxygen Concentration - - Weight 90.7 kg (200 lb) 04/04/2018 9:30 PM JIG AND FIXTURE REPAIRER Height 175.3 cm (5' 9 ) 04/08/2018 3:20 AM JIG AND FIXTURE REPAIRER Body Mass Index 29.53 04/04/2018 9:30 PM JIG AND FIXTURE REPAIRER Plan of Treatment Health Maintenance Due Date Last Done Comments DTAP/TDAP/TD VACCINES (1 - Tdap) 1962 PNEUMOCOCCAL VACCINE 50+ YEARS (1 of 2 - PCV) 07/28/18 63 ZOSTER VACCINE (1 of 2) 1993 RSV VACCINE (60+ or ) (1 - 1-dose 75+ series) 2018 INFLUENZA VACCINE (#1) 2024 Insurance MEDICARE PART A AND B [employer] [place] [place] [id number] [place] [place] [place] [id number] Advance Directives For more information, please contact: [phone] * Full Code (Latest Code Status on File) Date Activated Date Inactivated Comments 04/04/2018 10:19 PM 04/08/2018 8:18 PM
--- OUTSIDE RECORDS SUMMARY | 2025-02-22 06:57 | XMS_ITS | Encounter Summary ---
Author Organization [employer] [facility] Address [address] [place] [address] Care Team Providers Care Director Of Tax Services Name Role Phone Unavailable Primary Care Provider Unavailabl e Encounter Details Date Type Department Care Team (Latest Contact Info) Description 01/06/2003 Outpatient Historical [facility] [address] [place] [phone] Jayden Liu MD NO ADDRESS ON FILE MALIG SUNI BLADDER NOS (CMS/HCC) (Primary Dx) Social History Tobacco Use Types Packs/Day Years Used Date Smoking Tobacco: Never Assessed Sex and Gender Information Value Date Recorded Sex Assigned at Not on file 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
--- OUTSIDE RECORDS SUMMARY | 2025-02-22 06:57 | XMS_ITS | Patient Health Record ---
Author Organization [facility] [facility] Address [address] [place] [address] Care Team Providers Care Yarn Handler Name Role Phone Hilario SHETTY, Parvez Primary Care Provider Donita DENNYER MENDY [facility] [phone] Allergies Allergen (clinical drug ingredient) Drug/Non Drug Allergy documented on EMR Reaction Allergy Type Onset Date Status Penicillin allergy Drug Allergy Active Results Component Value Reference Range Notes Urinalysis, Routine Reviewed date:04/18/2024 03:42:40 PM Interpretation: Performing Lab: Notes/Report: Urine-Color yellow Appearance clear Glucose - Bilirubin - Ketones - Specific [place] 1.015 Occult Blood 2+ pH 6.0 Urine Protein - Urobilinogen,Semi-Qn - Nitrite, Urine - WBC Esterase - Urinalysis Gross Exam - Reason For Referral No Information Medications Medication SIG (Take, Route, Frequency, Duration) Notes Start Date End Date Status Ibuprofen 200 MG 2 tablets with food or milk as needed Orally as needed 06/03/2023 Active Warfarin Sodium 2 MG 1 tablet Orally Once a day Active Metoprolol Tartrate 25 MG 1 tablet with food Orally daily 06/03/2023 Active Finasteride 5 MG 1 tablet Orally Once a day 2023 Active amLODIPine Besylate 5 MG 1 tablet Orally Once a day 06/03/2023 Active Tamsulosin HCl 0.4 MG 1 capsule Orally O nce a day 06/03/2023 Active Vitamin C Active Social History Tobacco Use: Social History Observation Description Date Details (start date - stop date) Former Smoker NA - NA Tobacco Use/Smoking Question Answer Notes Tobacco use: former smoker Tobacco Control (Standard) Question Answer Notes Tobacco use: Former smoker Problems Problem Type SNOMED Code ICD Code Onset Dates Problem Status W/U Status Risk Notes Problem Benign prostatic hyperplasia (801362294) BPH (benign prostatic hyperplasia) (N40.0) Active confirmed Problem History of hematuria (143098534) History of hematuria (Z87.448) Active confirmed Problem Personal history of primary malignant neoplasm of urinary bladder (337621562) History of bladder cancer (Z85.51) Active confirmed Problem Malignant tumor of urinary bladder (850746772) Malignant neoplasm of urinary bladder, unspecified site (C67.9) Active confirmed Vital Signs Heart Rate 82 /min 04/18/2024 Temperature 97.9 degrees Fahrenheit 04/18/2024 Blood pressure diastolic 77 mm Hg 04/18/2024 Height-cm 175.26 cm 04/18/2024 Weight-kg 92.99 kg 04/18/2024 Height 69 in 04/18/2024 Blood pressure systolic 134 mm Hg 04/18/2024 Weight 205 lbs 04/18/2024 BMI 30.27 kg/m2 04/18/2024 Encounters Encounter Location Date Provider Diagnosis [employer] [facility] [address] [place] [address] 04/18/2024 [facility] BPH (benign prostatic hyperplasia) N40.0 ; History of bladder cancer Z85.51 and History of hematuria Z87.448 [employer] [facility] [address] [place] [address] 04/06/2024 MENDY CHEN [employer] [facility] [employer] [facility] [address] [place] [address] 04/19/2024 [facility] [employer] [facility] [employer] [facility] [address] [place] [address] 11/21/2024 [facility] Assessments Encounter Date Diagnosis (ICD Code) Assessment Notes Treatment Notes Treatment Clinical Notes Section Notes 04/18/2024 BPH (benign prostatic hyperplasia) (ICD-10 - N40.0) 78 yo male with hematuria, BPH and history of bladder cancer. Cysto negative today. Plan: cysto in 1 year Accupath cytology and Uro17 today all questions answered 04/18/2024 History of bladder cancer (ICD-10 - Z85.51) 78 yo male with hematuria, BPH and history of bladder cancer. Cysto negative today. Plan: cysto in 1 year Accupath cytology and Uro17 today all questions answered 04/18/2024 History of hematuria (ICD-10 - Z87.448) 78 yo male with hematuria, BPH and history of bladder cancer. Cysto negative today. Plan: cysto in 1 year Accupath cytology and Uro17 today all questions answered Plan Of Treatment Pending Test Test Name Order Date Bladder Scan 06/03/2023 Next Appt Details Provider Name:MENDY Mei, 04/20/2025 01:10:00 PM, [address] [place], [address], Insurance Providers Payer Name Payer Address Payer Phone Subscriber Number Group Number Insured Name Patient Relationship to Insured Coverage Start Date Coverage End Date [employer] Medicare Replacemen t [address] [place], [place] [id number] Zion Toribio Self - patient is the insured Medical (General) History Medical History History ICD Code BPH with LUTS bladder cancer urolithiasis gross hematuria a fib hypertension cervical and lumbar disc disorder CVA elevated PSA kidney stones aortic and mitral insufficiency Surgical History Surgery Date(Month/Year) prostate bx Hospitalization History Reason Date(Month/Year) heart issues
[2025-02-22 07:01] VITALS: BP 164/100; PULSE 80; RESP 18; TEMP 36.7; O2SAT 97; BMI 31.0
[2025-02-22 07:27] LABS: Add Urine Microscopic? YES; UA Manual Slide Review YES
[2025-02-22 07:33] VITALS: BP 142/92
[2025-02-22 07:34] LABS: Hematocrit 45.5 % (37-53); Hemoglobin 15.30 g/dL (11.27-16.99); Mean Corpuscular HGB Conc 33.6 g/dL (30-55); Mean Corpuscular Hemoglobin 29.1 pg (27-33); Mean Corpuscular Volume 86.5 fl (82-101); Nucleated Red Blood Cells % 0 %; Platelet Count 178 10^3/cmm (157-399); Red Blood Count 5.26 10^6/uL (3.85-5.65); White Blood Count 7.33 10^3/uL (3.29-11.43)
--- NOTE | 2025-02-22 07:40 | ED_ITS ---
HPI - Male Genitourinary 2 General: Chief complaint: Urogenital-Male Stated complaint: trouble urinating, blood in urine Time Seen by Provider: 02/22/25 06:54 History of Present Illness: 79-year-old male presents emergency room complaining of hematuria and difficulty urinating. Patient is on Coumadin for atrial fibrillation. He has a history of BPH is also tells me he has a history of bladder cancer his last bladder scope was with Dr. Vilchis in [place] approximately 6 months ago. Last few years he been seeing Dr. Vilchis prior to that he is seeing Dr. Newman. He is able to void a little after arrival here but still unable to completely empty his bladder. He denies any fever sweats chills no flank pain. Associated symptoms: Reports hematuria; Deny dysuria Related Data Home Medications ?Medication ?Instructions ?Recorded ?Confirmed tamsulosin 0.4 mg capsule 0.4 mg PO DAILY 06/03/1911/21 warfarin 1 mg tablet 1 mg PO DIRECTED 07/04/19 02/16/25 ascorbate calcium (vitamin C) 500 500 mg PO DAILY 06/2109/04/22 mg tablet Previous Rx's ?Medication ?Instructions ?Recorded amlodipine 5 mg tablet See Rx Instructions .Route 0 12/17/21 .COMPLEX #90 tabs finasteride 5 mg tablet See Rx Instructions .Route 0 01/10/22 .COMPLEX #90 tabs warfarin 2 mg tablet See Rx Instructions .Route 0 01/17/25 .COMPLEX #90 tabs metoprolol tartrate 25 mg tablet See Rx Instructions . Route 01/24/25 .COMPLEX #180 tabs Allergies Allergy/AdvReac Type Severity Reaction Status Date / Time penicillin G Allergy felt like Verified 06/07/24 14:08 was going to Review of Systems 2 Const: Denies: fever(s) or chills Card: Denies: chest pain Resp: Denies: dyspnea GI: Denies: abdominal pain : Reports: difficulty urinating, urinary dribbling, difficulty starting urination and hematuria; Denies: flank pain, dysuria, urinary frequency or urinary urgency Musc: Denies: neck pain or back pain Skin/Breast: Denies: rash PFSH ED 2 PFSH: Medical History H/O carcinoma of bladder Varicose vein of leg Bladder cancer History of kidney stones BPH loc w urin obs/LUTS Gross hematuria Near syncope Old cerebrovascular accident (CVA) without late effect Bradycardia by electrocardiogram Benign essential HTN Chronic episodic atrial fibrillation Actinic keratosis Sacroiliac pain Cervicalgia Lumbar disc disorder with myelopathy Benign prostatic hyperplasia with urinary obstruction Malignant neoplasm of bladder neck Low back pain radiating to left leg Paresthesia of left arm and leg Elevated PSA Cervical disc disorder with myelopathy Hypertension Bradycardia Intermittent palpitations Moderate aortic insufficiency Hypotension Moderate mitral insufficiency Easy bruising Asymptomatic superficial varicosities of both lower extremities CVA (cerebral vascular accident) Atypical chest pain Acute cystitis with hematuria Fractured nose Atrial fibrillation Surgical History H/O prostate biopsy Family History Mother , AT AGE 87 No problems noted. Father , AT AGE 87 No problems noted. Family/Other Chronic kidney disease (CKD) Other Diabetes Denies family history of CAD (coronary artery disease) Clotting disorder Dementia Suicide Anesthesia complication Bleeding disorder Lung disease Cancer Stroke Social History Smoking and tobacco/nicotine status: former use of tobacco/nicotine Alcohol intake: never Substance/Drug Use: unknown Adopted: No Caregiver/support person: No Lives independently: No Household members: spouse Marital status: Current occupational status: retired Physical Exam 2 Const: GENERAL APPEARANCE: cooperative ORIENTATION/CONSCIOUSNESS: Yes awake, Yes oriented to person, Yes oriented to place and Yes oriented to time HENMT: COMMON NORMALS: normocephalic, atraumatic and hearing grossly normal bilaterally HEAD & SCALP: normocephalic and atraumatic Resp: COMMON NORMALS: normal respiratory effort, No retractions, No use of accessory muscles and clear to auscultation bilaterally AUSCULTATION: clear to auscultation bilaterally Cardio: COMMON NORMALS: regular rate, regular rhythm and No murmurs present (Cardio) RATE: regular rate RHYTHM: regular rhythm GI: COMMON NORMALS: Soft to palpation and No hepatosplenomegaly present A USCULTATION: Yes normoactive bowel sounds PALPATION: Yes Soft to palpation, No Tenderness to palpation present (GI), No Guarding due to palpation present (GI) and Yes No hepatosplenomegaly present Extremity: COMMON NORMALS: normal to inspection, capillary refill normal, no clubbing, cyanosis or edema, no calf tenderness and no pedal edema Neuro: SENSORIUM/ORIENTATION: Yes oriented to person, Yes oriented to place and Yes oriented to time Skin: COMMON NORMALS: no rashes or lesions noted GENERAL SKIN EXAM: no rashes or lesions noted Course 2 Vital Signs: Vital signs: Vital Signs Temperature 98.1 F 02/22/25 07:01 Pulse Rate 70 02/22/25 09:17 Respiratory Rate 18 02/22/25 07:01 Blood Pressure 158/92 02/22/25 09:17 Pulse Oximetry 97 02/22/25 09:17 Oxygen Delivery Me thod Room Air 02/22/25 07:01 MDM - Male Medical Decision Making Initial postvoid residual of 350 mL. Urine is frankly bloody. Catheter placed irrigated and he is completely clear urine now. He is not significantly over anticoagulated his INR is 2. Long discussion with the patient. He has a history of BPH he had a history of bladder cancer its been nearly 6 months since his last cystoscopy. He has had a couple episodes of intermittent hematuria since that last cystoscopy. He will obviously need another 1. Expressed to him my concern he could start bleeding again in which case could become obstructed and require the Fritz. We have the option of leaving it in in the event it does recur or we can remove it and if it recurs he would have to return. He would prefer to go home without it he understands the risks and is willing to take that chance and return if he has recurrence of symptoms. Encouraged him to void frequently and follow-up with his urologist as soon as he is able return if he has any difficulty emptying his bladder or difficulty starting or urine stream. Medical Records I reviewed the patient's medical records. Lab Data I reviewed the patient's lab results. 02/22/25 07:25 02/22/25 07:25 Laboratory Results WBC 7.33 10^3/uL (3.29-11.43) 02/22/25 07:25 RBC 5.26 10^6/uL (3.85-5.65) 02/22/25 07:25 Hgb 15.30 g/dL (11.27-16.99) 09/24/25 07:25 Hct 45.5 % (37-53) 02/22/25 07:25 MCV 86.5 fl (82-101) 02/22/25 07:25 MCH 29.1 pg (27-33) 02/22/25 07: MCHC 33.6 g/dL (30-55) 02/22/25 07:25 RDW 13.5 % (12.1-15.1) 02/22/25 07:25 Plt Count 178 10^3/cmm (157-399) 02/22/25 07:25 MPV 9.5 fL (7.4-10.4) 02/22/25 07:25 Neut % (Auto) 55.0 % 02/22/25 07: Lymph % (Auto) 30.2 % 02/22/25 07:25 Mcclain % (Auto) 12.1 % 02/22/25 07:25 Eos % (Auto) 1.9 % 02/22/25 07:25 Baso % (Auto) 0.5 % 02/22/25 07: Neut # (Auto) 4.03 10^3/uL (1.8-7.7) 02/22/25 07:25 Lymph # (Auto) 2.2 10^3/uL (0.8-4.8) 02/22/25 07:25 Mcclain # (Auto) 0.9 10^3/uL (0.2-0.9) 02/22/25 07:25 Eos # (Auto) 0.1 10^3/uL (0.0-0.8) 02/22/25 07:25 Baso # (Auto) 0.0 10^3/uL (0.0-0.1) 02/22/25 07: Nucleated RBC % (auto) 0 % 02/22/25 07: Nucleated RBCs # 0.0 /100WBC 02/22/25 07:25 PT 24.00 SECONDS (12.1-14.9) H 02/22/25 07:25 INR 2.01 (0.8-1.2) H 02/22/25 07:25 Sodium 138 mmol/L (136-145) 02/22/25 07:25 Potassium 4.1 mmol/L (3.5-5.1) 02/22/25 07:25 Chloride 101 mmol/L (98-107) 02/22/25 07:25 Carbon Dioxide 25 mmol/L (22-29) 02/22/25 07:25 Anion Gap 16.1 (5-19) 02/22/25 07:25 BUN 22 mg/dL (8-23) 02/22/25 07:25 Creatinine 1.0 mg/dL (0.7-1.2) 02/22/25 07:25 GFR Calculation Not Reportable 02/22/25 07:25 Glucose 115 mg/dL (65-115) 02/22/25 07:25 Calculated Osmolality 290 mOsm/kg (285-295) 02/22/25 07:25 Calcium 8.9 mg/dL (8.5-10.5) 02/22/25 07:25 Urine Color Red (Yellow) A 02/22/25 06:50 Urine Appearance Turbid (CLEAR) A 02/22/25 06:50 Urine pH Not Reportable 02/22/25 06:50 Ur Specific Adrian Not Reportable 02/22/25 06:50 Urine Protein Not Reportable 02/22/25 06:50 Urine Glucose (UA) Not Reportable 02/22/25 06:50 Urine Ketones Not Reportable 02/22/25 06:50 Urine Blood Not Reportable 02/22/25 06:50 Urine Nitrate Not Reportable 02/22/25 06:50 Urine Bilirubin Not Reportable 02/22/25 06:50 Urine Urobilinogen Not Reportable 02/22/25 06:50 Ur Leukocyte Esterase Not Reportable 02/22/25 06:50 Urine RBC Too numerous to cnt /hpf (0-2) H 02/22/25 06:50 Urine WBC 15-25 /hpf (0-5) H 02/22/25 06:50 Ur Squamous Epith Cells 0-4 /hpf (0-5) H 02/22/25 06:50 Amorphous Sediment Not Reportable 02/22/25 06:50 Urine Bacteria Trace /hpf (NONE) 02/22/25 06:50 No radiology studies performed this visit Discharge Plan Discharge Patient Disposition: Home Clinical Impression: Hematuria, Bladder cancer, Acute urinary retention, Chronic anticoagulation Condition: Stable Prescriptions: No Action tamsulosin 0.4 mg capsule 0.4 mg PO DAILY ascorbate calcium (vitamin C) 500 mg tablet 500 mg PO DAILY warfarin 1 mg tablet 1 mg PO DIRECTED Protocol: Dose Management Condition: Thursday Dose/Route: 2 mg Instruction: 1 x 2 mg tablet Condition: Thursday Dose/Route: 2 mg Instruction: 1 x 2 mg tablet Condition: Thursday Dose/Route: 1 mg Instruction: 1 x 1 mg tablet Condition: Thursday Dose/Route: 2 mg Instruction: 1 x 2 mg tablet Condition: Dose/Route: 1 mg Instruction: 1 x 1 mg tablet Condition: Thursday Dose/Route: 2 mg Instruction: 1 x 2 mg tablet Condition: Thursday Dose/Route: 2 mg Instruction: 1 x 2 mg tablet Protocol Text: Adjustment Start Date: 02/16/25 INR Value: 30.6 Seconds INR Date: 02/16/25 Recheck Date: 03/16/25 amlodipine 5 mg tablet See Rx Instructions .ROUTE .COMPLEX Qty: 90 3RF Dose Instruction: TAKE 1 TABLET BY MOUTH EVERY DAY Rx Instructions: TAKE 1 TABLET BY MOUTH EVERY DAY finasteride 5 mg tablet See Rx Instructions .ROUTE .COMPLEX Qty: 90 3RF Dose Instruction: TAKE 1 TABLET BY MOUTH EVERY DAY Rx Instructions: TAKE 1 TABLET BY MOUTH EVERY DAY warfarin 2 mg tablet See Rx Instructions .ROUTE .COMPLEX Qty: 90 3RF Protocol: Dose Management Condition: Thursday Dose/Route: 2 mg Instruction: 1 x 2 mg tablet Condition: Thursday Dose/Route: 2 mg Instruction: 1 x 2 mg tablet Condition: Thursday Dose/Route: 1 mg Instruction: 1 x 1 mg tablet Condition: Thursday Dose/Route: 2 mg Instruction: 1 x 2 mg tablet Condition: Dose/Route: 1 mg Instruction: 1 x 1 mg tablet Condition: Thursday Dose/Route: 2 mg Instruction: 1 x 2 mg tablet Condition: Thursday Dose/Route: 2 mg Instruction: 1 x 2 mg tablet Protocol Text: Adjustment Start Date: 02/16/25 INR Value: 30.6 Seconds INR Date: 02/16/25 Recheck Date: 03/16/25 Dose Instruction: TAKE 1 TABLET BY MOUTH ONCE DAILY DIRECTED Rx Instructions: TAKE 1 TABLET BY MOUTH ONCE DAILY DIRECTED metoprolol tartrate 25 mg tablet See Rx Instructions .ROUTE .COMPLEX Qty: 180 2RF Dose Instruction: TAKE 1 TABLET BY MOUTH EVERY DAY Rx Instructions: TAKE 1 TABLET BY MOUTH EVERY DAY Discharge Orders: Discharge ED (Routine); Ordered 02/22/25 Ordered By: Jackson Pizarro Referrals: Parvez Rich MD [Primary Care Provider, Family Practice] Patient Instructions: Opioid Safety, Pain Management, Patient Portal & [facility] Instructions Activity Restrictions/Additional Instructions: [facility]. It is very important that you follow up as instructed or that you return to the Emergency Department should you have concerns or if your condition changes or worsens in any way. Emergency department visits are focused on emergent conditions, in some cases you may require further evaluation on an outpatient basis. You were seen in the emergency room with complaints of blood in the urine and difficulty urinating. On bladder scan you did have a significant amount of retained urine you were able to eventually void some of it. A Fritz was placed your bladder irrigated until clear. Given your history of bladder cancer you should follow-up as soon as you are able you will need repeat cystoscopy with urology. After discussion you chose to have the Fritz removed. If you have further difficulty with urination you should return to the emergency room it is possible especially given that you are on Coumadin if there is more bleeding for this to obstruct your bladder and you will begin retaining urine again and will require a Fritz catheter. Contact your urologist for follow-up as soon as you are able. Finally recommend increasing your tamsulosin to 1 tablet twice a day. (Please note that included in your discharge packet is information concerning opioid safety and pain management. 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
[2025-02-22 07:55] LABS: Anion Gap 16.1 (5-19); Blood Urea Nitrogen 22 mg/dL (8-23); Calcium 8.9 mg/dL (8.5-10.5); Carbon Dioxide 25 mmol/L (22-29); Chloride 101 mmol/L (98-107); Creatinine Clr Calc Pharmacy 65.9830; Glucose 115 mg/dL (65-115); Osmolality Calculated 290 mOsm/kg (285-295); Potassium 4.1 mmol/L (3.5-5.1); Sodium 138 mmol/L (136-145)
[2025-02-22 08:24] LABS: INR 2.01 (0.8-1.2); Prothrombin Time 24.00 SECONDS (12.1-14.9)
[2025-02-22 08:33] VITALS: BP 133/78; PULSE 71; O2SAT 98
--- NOTE | 2025-02-22 08:54 | PC.NURSE ---
PT was able to urinate 300MLS on his own prior to pryor cath placement. PT urine was light pink at time pryor was place. P+Irrigated PT bladder until clear, urine is now pale yellow in drainage bag
--- NOTE | 2025-02-22 09:16 | PC.NURSE ---
pryor catheter removed
[2025-02-22 09:17] VITALS: BP 158/92; PULSE 70; O2SAT 97
== END 2025-02-22 09:19 | disposition home or self-care (01) ==
PROVIDERS: Emergency Provider Family Medicine; PCP Family Medicine
DX: R31.9 Hematuria, unspecified (principal); R33.8 Other retention of urine; C67.9 Malignant neoplasm of bladder, unspecified; Z79.01 Long term (current) use of anticoagulants; Z87.891 Personal history of nicotine dependence; I10 Essential (primary) hypertension; Z86.73 Personal history of transient ischemic attack (TIA), and cerebral infarction without residual deficits
CPT/HCPCS: 36415; 51702; 51798; 80048; 81001; 85025; 85610; 87086; 99283

== ENCOUNTER → 2025-03-16 10:23 | Outpatient (BNVA) | payer MEDICARE, SELFPAY | PROVIDERS: PCP Family Medicine; Visit Provider Internal Medicine Cardiovascular Disease | DX: I48.91 Unspecified atrial fibrillation (principal) | CPT/HCPCS: 85610 ==